=== PATIENT | male | born 1955 | race Caucasian/White ===

== ENCOUNTER 2018-08-27 11:07 | Observation (INO) | payer BC ==
[2018-08-27] MEDS ORDERED: ONDANSETRON HCL IV 4 MG/2 ML VIAL IVP ONE (11:34)
[2018-08-27] MEDS ORDERED: 0.9 % SODIUM CHLORIDE 1,000 ML BAG IV ONE (11:34)
--- NOTE | 2018-08-27 11:43 | Emergency Department Record ---
History of Present Illness - General Chief Complaint: Detox Evaluation Stated Complaint: DETOX/CHEST PAINS Time Seen by Provider: 08/27/18 11:16 Source: Patient, Family Mode of Arrival: Wheelchair Limitations: No limitations - History of Present Illness Initial comments: 62 yo male presents with nausea, vomiting, diarrhea, chills, shakes, nausea, vomiting since intentionally stopping his Morphine. He has been on Morphine for 15+ years. He has attempted this a few times in past abruptly stopping. His last for sure dose of Morphine was on Wednesday. He has fibromyalgia and psoriatic arthritis. Last night he had some brief chest pain as well. He denies any history of CAD. He does not consume alcohol. -: Days(s) (5) Location: Other (Pain all over) Quality: Aching Consistency: Constant Improves with: None Worsens with: Other (Abruptly stopping his medication) Associated Symptoms: Loss of appetite, Malaise, Nausea/vomiting, Weakness Treatments Prior to Arrival: None - Lc Coma Scale Eye Response: (4) Open spontaneously Motor Response: (6) Obeys commands Verbal Response: (5) Oriented [place] Total: 15 - Related Data Home Medications Medication Instructions Recorded Confirmed Last Taken Bupropion HCl [Bupropion HCl Sr] 08/27/18 Unknown Ergocalciferol (Vitamin D2) 08/27/18 Unknown [Vitamin D2] Nefazodone HCl 400 mg PO 08/27/18 Unknown Allergies Allergy/AdvReac Type Severity Reaction Status Date / Time erythromycin base Allergy VOMITING Verified 08/27/18 11:31 [Erythromycin Base] Travel Screening - Travel/Exposure Within Last 30 Days Have you traveled within the last 30 days?: No - Travel/Exposure Within Last Year Have you traveled outside the [place] in the last year?: No - Additonal Travel Details Have you been exposed to anyone with a communicable illness?: No - Travel Symptoms Symptom Screening: None Review of Systems Constitutional: Reports: Malaise, Weakness. Denies: Chills, Fever Eyes: Denies: Eye discharge, Eye pain, Photophobia, Vision change ENT: Denies: Congestion, Throat pain Respiratory: Denies: Cough, Dyspnea, Hemoptysis, Stridor, Wheezes Cardiovascular: Reports: Chest pain. Denies: Dyspnea on exertion, Edema, Palpitations, Syncope Endocrine: Reports: Fatigue Gastrointestinal: Reports: Abdominal pain, Diarrhea, Nausea, Vomiting Genitourinary: Denies: Dysuria, Frequency, Hematuria Musculoskeletal: Reports: Arthralgia, Back pain, Myalgia, Neck pain Skin: Denies: Bruising, Change in color, Rash Neurological: Denies: Headache Psychiatric: Denies: Anxiety Hematological/Lymphatic: Denies: Easy bleeding, Easy bruising Past Medical History - SOCIAL HISTORY Smoking Status: Current every day smoker Alcohol Use: None Drug Use: None - RESPIRATORY Hx Respiratory Disorders: No Hx Sleep Apnea: Yes (only if sleeps on back) Comment:: post nasal drip r/t allergies - CARDIOVASCULAR Hx Cardio Disorders: No Hx Irregular Heartbeat: Yes (10 yrs ago ht monitor was neg) - NEURO Hx Neuro Disorders: No - GI Hx GI Disorders: Yes Hx Reflux: Yes Hx Liver Disease: Yes (hepatitis 25 years ago) Hx Nausea/Vomiting: Yes Comment:: dysphagia IBS - Hx Genitourinary Disorders: Yes Hx Prostate Problems: Yes (enlarged) - ENDOCRINE Hx Endocrine Disorders: No - MUSCULOSKELETAL Hx Musculoskeletal Disorders: Yes Hx Arthritis: Yes Hx Fibromyalgia: Yes - PSYCH Hx Psych Problems: No Hx Anxiety: Yes Hx Depression: Yes (hx clinical depression late 1989) - HEMATOLOGY/ONCOLOGY Hx Hematology/Oncology Disorders: No Family Medical History Any Significant Family History?: No Physical Exam - General General Appearance: Alert, Oriented x3, Cooperative, No acute distress Limitations: No limitations - Head Head exam: Atraumatic, Normal inspection - Eye Eye exam: Normal appearance. negative: Conjunctival injection, Scleral icterus - ENT ENT exam: Normal exam, Mucous membranes moist, Normal orophraynx Ear exam: Normal external inspection Nasal Exam: Normal inspection Mouth exam: Normal external inspection Teeth exam: Normal inspection - Neck Neck exam: Normal inspection - Respiratory Respiratory exam: Normal lung sounds bilaterally. negative: Respiratory distress - Cardiovascular Cardiovascular Exam: Regular rate, Normal rhythm, Normal heart sounds - GI/Abdominal GI/Abdominal exam: Soft. negative: Tenderness - Rectal Rectal exam: Deferred - exam: Deferred - Extremities Extremities exam: Normal inspection, Full ROM, Normal capillary refill. negative: Pedal edema, Tenderness - Back Back exam: Denies: CVA tenderness (R), CVA tenderness (L) - Neurological Neurological exam: Alert, Oriented X3 - Psychiatric Psychiatric exam: Normal affect, Normal mood - Skin Skin exam: Dry, Intact, Normal color, Warm Course Vital Signs 08/27/18 11:21 Temperature 98.8 F Pulse Rate 75 Respiratory 16 Rate Blood Pressure 112/61 Pulse Ox 99 - Reevaluation(s) Reevaluation #1: EKG #1: 11:13 Rate: 61 Rhythm: sinus [place]: L Intervals: normal ST segments: no acute ST changes Prior: none 08/27/18 11:49 08/27/18 11:51 Vitals reviewed No acute changes 08/27/18 12:16 The CBC was reviewed. No acute changes. 08/27/18 12:27 The Mg is 1.7 The K is 2.8 The Sodium is 128 08/27/18 17:20 Given the NV and electrolyte abnormalities I recommend admission for supportive care. He is firm in his decision to not take narcotics. I EDISON Moya [employer] for admission Medical Decision Making - Lab Data Result diagrams: 08/27/18 11:25 08/27/18 11:25 Disposition Disposition: Admit Clinical Impression: Narcotic withdrawal Disposition: Still a Patient at [facility] Decision to Admit: Admit from ER Decision to Admit Date: 08/27/18 Decision to Admit Time: 14:20 Condition: (1) Good Time of Disposition: 14:20 Quality - Quality Measures Quality Measures: N/A - Blood Pressure Screening Does Patient Have Any of the Following: Active Dx of HTN Blood Pressure Classification: Normal BP Reading Systolic Measurement: 112 Diastolic Measurement: 61 Screening for High Blood Pressure: Patient Exclusion, Hx of HTN [[id number]]
[2018-08-27] MEDS ORDERED: LORAZEPAM 2 MG/ML VIAL IV ONE (11:44)
[2018-08-27 11:56] LABS: BASO % 0.2 % (0-6); EOS % 0.5 % (0-6); GRAN % 73.3 % (47-80); HEMATOCRIT 44.2 % (42.0-52.0); HEMOGLOBIN 15.5 gm/dl (14.0-18.0); LYMPH % 19.2 % (16-45); MEAN CELL VOLUME 83.9 fl (81-97); MEAN CORPUSCULAR HEMOGLOBIN 29.4 pg (27-33); MEAN CORPUSCULAR HGB CONC 35.1 g/dl (32-36); MEAN PLATELET VOLUME 9.4 fl (7.4-10.4); MONO % 6.8 % (0-9); PLATELET COUNT 257 K/uL (130-400); RED BLOOD COUNT 5.27 M/uL (4.40-5.70); RED CELL DISTRIBUTION WIDTH 13.5 % (11.5-14.5); WHITE BLOOD COUNT W/O DIFF 8.2 K/uL (4.2-12.2)
[2018-08-27 12:05] LABS: BLOOD UREA NITROGEN 3 mg/dL (8-23); CREATININE 0.8 mg/dL (0.7-1.2); EST GLOMERULAR FILTRATION RATE > 60 mL/min
[2018-08-27 12:06] LABS: LIPASE 57 U/L (13-60); TOTAL PROTEIN 6.7 g/dL (6.6-8.7)
[2018-08-27 12:08] LABS: GLUCOSE,RANDOM 112 mg/dL (74-109)
[2018-08-27 12:10] LABS: ALT/SGPT 26 U/L (<41)
[2018-08-27 12:11] LABS: ALB/GLOB RATIO 1.5 (1.1-1.8); ALKALINE PHOSPHATASE 116 U/L (40-129); AST/SGOT 15 U/L (10.0-50.0)
[2018-08-27] MEDS ORDERED: MAGNESIUM SULFATE 16 MEQ in 0.9 % SODIUM CHLORIDE 100ML 100 ML IV ONE (12:16)
[2018-08-27] MEDS ORDERED: SOD CHLOR 0.9% WITH KCL 40MEQ 40 MEQ/1,000 ML IV.SOLN IV ONE (12:27)
[2018-08-27] MEDS ORDERED: POTASSIUM CHLORIDE/D5-0.9%NACL 20 MEQ/1,000 ML BAG IV SCH (14:26)
[2018-08-27] MEDS: ONDANSETRON HCL IV 4 MG/2 ML VIAL IVP PRN ×2 (16:55→21:19)
[2018-08-27] MEDS: LORAZEPAM 2 MG/ML VIAL IV PRN ×2 (16:56→21:22)
[2018-08-27] MEDS: CLONIDINE HCL 0.1 MG TABLET PO SCH ×3 (16:56→22:15)
[2018-08-27 18:39] LABS: HEMATOCRIT 39.2 % (42.0-52.0); HEMOGLOBIN 13.4 gm/dl (14.0-18.0)
[2018-08-27] MEDS: POTASSIUM CHLORIDE/D5-0.9%NACL 20 MEQ/1,000 ML BAG IV SCH (21:02)
[2018-08-28] MEDS: ONDANSETRON HCL IV 4 MG/2 ML VIAL IVP PRN ×5 (02:49→18:16)
[2018-08-28] MEDS: POTASSIUM CHLORIDE/D5-0.9%NACL 20 MEQ/1,000 ML BAG IV SCH (05:12)
[2018-08-28 05:48] LABS: BASO % 0.3 % (0-6); EOS % 1.6 % (0-6); GRAN % 54.1 % (47-80); HEMATOCRIT 37.2 % (42.0-52.0); HEMOGLOBIN 12.4 gm/dl (14.0-18.0); LYMPH % 35.6 % (16-45); MEAN CELL VOLUME 85.7 fl (81-97); MEAN CORPUSCULAR HGB CONC 33.3 g/dl (32-36); MEAN PLATELET VOLUME 9.2 fl (7.4-10.4); MONO % 8.4 % (0-9); PLATELET COUNT 222 K/uL (130-400); RED BLOOD COUNT 4.34 M/uL (4.40-5.70); RED CELL DISTRIBUTION WIDTH 13.3 % (11.5-14.5); WHITE BLOOD COUNT W/O DIFF 6.7 K/uL (4.2-12.2)
[2018-08-28 05:51] LABS: MEAN CORPUSCULAR HEMOGLOBIN 28.5 pg (27-33)
[2018-08-28 06:26] LABS: ALB/GLOB RATIO 1.7 (1.1-1.8); ALBUMIN 3.2 g/dL (4.0-5.0); ALKALINE PHOSPHATASE 85 U/L (40-129); ALT/SGPT 18 U/L (<41); AST/SGOT 12 U/L (10.0-50.0); BLOOD UREA NITROGEN 2 mg/dL (8-23); CREATININE 0.6 mg/dL (0.7-1.2); EST GLOMERULAR FILTRATION RATE > 60 mL/min; GLUCOSE,RANDOM 131 mg/dL (74-109); TOTAL PROTEIN 5.1 g/dL (6.6-8.7)
[2018-08-28] MEDS ORDERED: MELOXICAM 7.5 MG TABLET PO SCH (10:00)
[2018-08-28] MEDS ORDERED: FOLIC ACID 1 MG TABLET PO SCH (10:00)
[2018-08-28] MEDS: CLONIDINE HCL 0.1 MG TABLET PO SCH (10:03)
[2018-08-28] MEDS ORDERED: 0.9 % SODIUM CHLORIDE 1000ML 1,000 ML IV PRN (12:53)
[2018-08-28] MEDS ORDERED: POTASSIUM CHLORIDE 20 MEQ TABLET PO SCH (13:00)
--- NOTE | 2018-08-28 15:18 | History & Physical ---
History of Present Illness - Date of Service Date of Service for History & Physical: 08/28/18 - History of Present Illness Admitting Diagnosis: opiod withdrawal, hypokalemia, hypomag, hyponatremia, vomiting History of Present Illness: Alessio Coto is a 62 y.o. M who presented to the [facility] ED with c/o nausea, vomiting, diarrhea, chills and shakes since Wednesday08/23/18 when he intentionally stopped taking his Morphine IR and Morphine ER. Was put on Morphine for Fibromyalgia by the [facility] and has been on it for more than 15 years. Has abruptly stopped taking these medications in the past and reports that the withdrawal period would only last 4-5 days.Does note that he has been feeling very nauseated x 3 months. Did report it to his PCP who sent him to a GI specialist who stopped his Meloxicam. Reports that his nausea was slightly improved after he stopped the Meloxicam. Denies history of heart problems. Has had gallbladder removed but since then, has had issues with stones in the Common Bile Duct. ED Course Vitals: T 98.8, HR 75, RR 16, BP 112/61, SpO2 99% on RA EKG: NSR, HR 61, no acute ST changes Labs: CBC unremarkable, Mg 1.7, K 2.8, Na 128 08/28/18 1500 Vitals: T 99.4, HR 56, BP 84/52, SpO2 96% on RA Lying in bed with spouse at bedside. Easy to arouse. Reports epigastric abdominal pain and nausea. Pt and nursing staff report that he has had constant loose stool and that on occasion, it looks like coffee grounds or there is bright red blood in the toilet. Reports that he has had frequent episodes of pancreatitis. CT of Abd/pelvis ordered and indicated heterogenity of pancreatic head and colitis from midtransverse through rectum. Hgb dropped from 15.5 to 12.4 in less than 24 hours and has been hypotensive. Occult stool negative x 1. Pt did not want to leave [facility] however after discussing CT and the recommendation for MRCP and need for further workup, pt and agreeable. Travel Screening - Travel/Exposure Within Last 30 Days Have you traveled within the last 30 days?: No - Travel/Exposure Within Last Year Have you traveled outside the [place] in the last year?: No - Additonal Travel Details Have you been exposed to anyone with a communicable illness?: No - Travel Symptoms Symptom Screening: None Review of Systems Reviewed: No additional complaints except as noted below Constitutional: Reports: Malaise, Weakness, Weight change (10 lb). Denies: Chills, Fever Eyes: Denies: Eye discharge, Eye pain, Photophobia, Vision change ENT: Denies: Congestion, Throat pain Respiratory: Denies: Cough, Dyspnea, Hemoptysis, Stridor, Wheezes Cardiovascular: Reports: Chest pain. Denies: Dyspnea on exertion, Edema, Palpitations, Syncope Endocrine: Reports: Fatigue Gastrointestinal: Reports: Abdominal pain, Diarrhea, Melena, Nausea, Vomiting Genitourinary: Denies: Dysuria, Frequency, Hematuria Musculoskeletal: Reports: Arthralgia, Back pain, Myalgia, Neck pain Skin: Denies: Bruising, Change in color, Rash Neurological: Denies: Headache Psychiatric: Denies: Anxiety Hematological/Lymphatic: Denies: Easy bleeding, Easy bruising Past Medical History - SOCIAL HISTORY Smoking Status: Current every day smoker - RESPIRATORY Hx Respiratory Disorders: No Hx Sleep Apnea: Yes (only if sleeps on back) Comment:: post nasal drip r/t allergies - CARDIOVASCULAR Hx Cardio Disorders: No Hx Irregular Heartbeat: Yes (10 yrs ago ht monitor was neg) - NEURO Hx Neuro Disorders: No - GI Hx GI Disorders: Yes Hx Reflux: Yes Hx Liver Disease: Yes (hepatitis 25 years ago) Hx Nausea/Vomiting: Yes Comment:: dysphagia IBS - Hx Genitourinary Disorders: Yes Hx Prostate Problems: Yes (enlarged) - ENDOCRINE Hx Endocrine Disorders: No - MUSCULOSKELETAL Hx Musculoskeletal Disorders: Yes Hx Arthritis: Yes Hx Fibromyalgia: Yes - PSYCH Hx Psych Problems: No Hx Anxiety: Yes Hx Depression: Yes (hx clinical depression late 1989) - HEMATOLOGY/ONCOLOGY Hx Hematology/Oncology Disorders: No Family Medical History Any Significant Family History?: No H&P Meds/Allergies - Allergies Allergies: Allergies Allergy/AdvReac Type Severity Reaction Status Date / Time erythromycin base Allergy VOMITING Verified 08/27/18 11:31 [Erythromycin Base] - Home Medications Home Medications Medication Instructions Recorded Confirmed Last Taken Bupropion HCl [Bupropion HCl Sr] 08/27/18 Unknown Ergocalciferol (Vitamin D2) 08/27/18 Unknown [Vitamin D2] Nefazodone HCl 400 mg PO 08/27/18 Unknown - Active Medications Active Medications: Current Medications Folic Acid () 1 mg PO BID [facility] Last Admin: 08/28/18 10:03 Dose: 1 mg Sodium Chloride () 1,000 mls @ 150 mls/hr IV .Q6H40M PRN PRN Reason: LARGE VOLUME IV Last Admin: 08/28/18 13:15 Dose: 150 mls/hr Lorazepam (Ativan) 1 mg IV Q4H PRN PRN Reason: ANXIETY Last Admin: 08/27/18 21:22 Dose: 1 mg Ondansetron HCl (Zofran) 4 mg IVP Q4H PRN PRN Reason: NAUSEA Last Admin: 08/28/18 13:14 Dose: 4 mg Potassium Chloride (Klor-Con) 20 meq PO DAILY [facility] Last Admin: 08/28/18 13:15 Dose: 20 meq Physical Exam - Vital Signs Vital Signs: Vital Signs - Last 24 Hrs Temp Pulse Resp BP BP Pulse Ox 08/28/18 12:30 99.4 F 56 L 16 84/52 96 08/28/18 08:00 98.2 F 63 18 107/65 98 08/27/18 18:02 97.7 F 121/63 - General General Appearance: Alert, Oriented x3, Cooperative, No acute distress, Other ( malodorous) Limitations: No limitations - Head Head exam: Atraumatic, Normal inspection - Eye Eye exam: Normal appearance. negative: Conjunctival injection, Scleral icterus - ENT ENT exam: Normal exam, Mucous membranes dry, Normal orophraynx Ear exam: Normal external inspection Nasal Exam: Normal inspection Mouth exam: Normal external inspection Teeth exam: Normal inspection - Neck Neck exam: Normal inspection - Respiratory Respiratory exam: Normal lung sounds bilaterally. negative: Respiratory distress - Cardiovascular Cardiovascular Exam: Regular rate, Normal rhythm, Normal heart sounds - GI/Abdominal GI/Abdominal exam: Soft, Guarding, Hyperactive bowel sounds. negative: Tenderness - Rectal Rectal exam: Heme (-) stool (x1) - exam: Deferred - Extremities Extremities exam: Normal inspection, Full ROM, Normal capillary refill. negative: Pedal edema, Tenderness - Back Back exam: Denies: CVA tenderness (R), CVA tenderness (L) - Neurological Neurological exam: Alert, Oriented X3 - Psychiatric Psychiatric exam: Normal affect, Normal mood - Skin Skin exam: Dry, Intact, Pallor, Warm Results - Labs Result Diagrams: 08/28/18 05:20 08/28/18 05:20 Labs Last 24 Hours: Laboratory Results - last 24 hr 08/27/18 08/27/18 08/28/18 18:20 18:20 02:00 WBC RBC Hgb 13.4 L Hct 39.2 L MCV MCH MCHC RDW Plt Count MPV Gran % Neutrophils % Band Neutrophils % Lymphocytes % Monocytes % Eosinophils % Basophils % Lymphocytes Monocytes Basophils Metamyelocytes Myelocytes Promyelocytes Nucleated RBCs Differential Comment Hypersegmented Polys Plasma Cells Other Cell Type Toxic Granulation Dohle Bodies Otilia Rods Platelet Estimate RBC Morphology Polychromasia Hypochromasia Poikilocytosis Basophilic Stippling Anisocytosis Microcytosis Macrocytosis Spherocytes Sickle Cells Target Cells Tear Drop Cells Ovalocytes Stomatocytes Helmet Cells Carlos-Foreman Bodies [place] Rings Ledbetter Cells Acanthocytes (Spur) Rouleaux Schistocytes Morphology Comment Eosinophil Count Sodium Potassium Chloride Carbon Dioxide Anion Gap BUN Creatinine Estimated GFR Random Glucose Calcium Magnesium Total Bilirubin AST ALT Alkaline Phosphatase Troponin T < 0.010 Cancelled Total Protein Albumin Globulin Albumin/Globulin Ratio Stool Occult Blood 08/28/18 08/28/18 08/28/18 05:20 05:20 06:00 WBC 6.7 RBC 4.34 L Hgb 12.4 L Hct 37.2 L MCV 85.7 MCH 28.5 MCHC 33.3 RDW 13.3 Plt Count 222 MPV 9.2 Gran % 54.1 Neutrophils % Cancelled Band Neutrophils % Cancelled Lymphocytes % 35.6 Monocytes % 8.4 Eosinophils % 1.6 Basophils % 0.3 Lymphocytes Cancelled Monocytes Cancelled Basophils Cancelled Metamyelocytes Cancelled Myelocytes Cancelled Promyelocytes Cancelled Nucleated RBCs Cancelled Differential Comment Cancelled Hypersegmented Polys Cancelled Plasma Cells Cancelled Other Cell Type Cancelled Toxic Granulation Cancelled Dohle Bodies Cancelled Otilia Rods Cancelled Platelet Estimate Cancelled RBC Morphology Cancelled Polychromasia Cancelled Hypochromasia Cancelled Poikilocytosis Cancelled Basophilic Stippling Cancelled Anisocytosis Cancelled Microcytosis Cancelled Macrocytosis Cancelled Spherocytes Cancelled Sickle Cells Cancelled Target Cells Cancelled Tear Drop Cells Cancelled Ovalocytes Cancelled Stomatocytes Cancelled Helmet Cells Cancelled Carlos-Foreman Bodies Cancelled [place] Rings Cancelled Ledbetter Cells Cancelled Acanthocytes (Spur) Cancelled Rouleaux Cancelled Schistocytes Cancelled Morphology Comment Cancelled Eosinophil Count Cancelled Sodium 136 Cancelled Potassium 3.6 Cancelled Chloride 107 Cancelled Carbon Dioxide 22.0 Cancelled Anion Gap 7.0 Cancelled BUN 2 L Cancelled Creatinine 0.6 L Cancelled Estimated GFR > 60 Cancelled Random Glucose 131 H Cancelled Calcium 7.5 L Cancelled Magnesium 2.0 Cancelled Total Bilirubin 0.30 AST 12 ALT 18 Alkaline Phosphatase 85 Troponin T < 0.010 Total Protein 5.1 L Albumin 3.2 L Globulin 1.9 Albumin/Globulin Ratio 1.7 Stool Occult Blood 08/28/18 13:29 WBC RBC Hgb Hct MCV MCH MCHC RDW Plt Count MPV Gran % Neutrophils % Band Neutrophils % Lymphocytes % Monocytes % Eosinophils % Basophils % Lymphocytes Monocytes Basophils Metamyelocytes Myelocytes Promyelocytes Nucleated RBCs Differential Comment Hypersegmented Polys Plasma Cells Other Cell Type Toxic Granulation Dohle Bodies Otilia Rods Platelet Estimate RBC Morphology Polychromasia Hypochromasia Poikilocytosis Basophilic Stippling Anisocytosis Microcytosis Macrocytosis Spherocytes Sickle Cells Target Cells Tear Drop Cells Ovalocytes Stomatocytes Helmet Cells Carlos-Foreman Bodies [place] Rings Ledbetter Cells Acanthocytes (Spur) Rouleaux Schistocytes Morphology Comment Eosinophil Count Sodium Potassium Chloride Carbon Dioxide Anion Gap BUN Creatinine Estimated GFR Random Glucose Calcium Magnesium Total Bilirubin AST ALT Alkaline Phosphatase Troponin T Total Protein Albumin Globulin Albumin/Globulin Ratio Stool Occult Blood Negative VTE H&P Assessment - Risk for VTE Risk for VTE: Yes Risk Level: Moderate Risk Assessment Date: 08/28/18 Risk Assessment Time: 15:00 VTE Orders Placed or Will Be Placed: No VTE Reason for No Prophylaxis: Complication of Medical Care (transfer to higher level of care) Plan - Detailed Diagnosis and Plan (1) Narcotic withdrawal Current Visit: Yes Status: Acute Base Code: F11.23 - OPIOID DEPENDENCE WITH WITHDRAWAL Comment: 08/28/18 -Morphine ER and Morphine IR x 15 years -Stopped taking as of 08/23/18 -Trialed Clonidine 0.1mg, however stopped d/t hypotension (84/52) -IV Zofran and Ativan given as needed (2) Abdominal pain Current Visit: Yes Status: Acute Base Code: R10.9 - UNSPECIFIED ABDOMINAL PAIN Comment: 08/28/18 -Epigastric abdominal pain, hx of pancreatitis and common bile duct issues -Blood loss per rectum noted by staff and pt -CT abd/pelvis: heterogenity of pancreatic head, colitis midtransverse through rectum with f/u MRI or MRCP recommended -Hgb dropped from 15.5 to 12.4 in less than 24 hours -Discussed need for higher level of care with pt and spouse who are in agreement -[facility] physician Dr. Nunez accepted pt transfer (3) Full code status Current Visit: Yes Status: Acute Base Code: Z78.9 - OTHER SPECIFIED HEALTH STATUS Comment: 08/28/18 -Full code this admission (4) DVT prophylaxis Current Visit: Yes Status: Acute Base Code: [id number] - Comment: 08/28/18 -Moderate risk d/t age -Transferred to [facility]
[2018-08-28] MEDS ORDERED: PANTOPRAZOLE SODIUM IV 40 MG VIAL IVP SCH (16:30)
--- NOTE | 2018-08-28 19:55 | Discharge Summary ---
Providers Discharge Summary Date: 08/28/18 Date of admission: 08/27/18 13:55 Attending physician: JAYA LERNER Primary care physician: Min Becerra Physical Exam - Vital Signs Vital Signs: Vital Signs - Last 24 Hrs Temp Pulse Resp BP Pulse Ox 08/28/18 19:10 98.3 F 50 L 16 104/52 98 08/28/18 12:30 99.4 F 56 L 16 84/52 96 08/28/18 08:00 98.2 F 63 18 107/65 98 - General General Appearance: Alert, Oriented x3, Cooperative, No acute distress, Other ( malodorous) Limitations: No limitations - Head Head exam: Atraumatic, Normal inspection - Eye Eye exam: Normal appearance. negative: Conjunctival injection, Scleral icterus - ENT ENT exam: Normal exam, Mucous membranes dry, Normal orophraynx Ear exam: Normal external inspection Nasal Exam: Normal inspection Mouth exam: Normal external inspection Teeth exam: Normal inspection - Neck Neck exam: Normal inspection - Respiratory Respiratory exam: Normal lung sounds bilaterally. negative: Respiratory distress - Cardiovascular Cardiovascular Exam: Regular rate, Normal rhythm, Normal heart sounds - GI/Abdominal GI/Abdominal exam: Soft, Guarding, Hyperactive bowel sounds. negative: Tenderness - Rectal Rectal exam: Heme (-) stool (x1) - exam: Deferred - Extremities Extremities exam: Normal inspection, Full ROM, Normal capillary refill. 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 Comment: 08/28/18 -Morphine ER and Morphine IR x 15 years -Stopped taking as of 08/23/18 -Trialed Clonidine 0.1mg, however stopped d/t hypotension (84/52) -IV Zofran and Ativan given as needed (2) Abdominal pain Current Visit: Yes Status: Acute Base Code: R10.9 - UNSPECIFIED ABDOMINAL PAIN Comment: 08/28/18 -Epigastric abdominal pain, hx of pancreatitis and common bile duct issues -Blood loss per rectum noted by staff and pt -CT abd/pelvis: heterogenity of pancreatic head, colitis midtransverse through rectum with f/u MRI or MRCP recommended -Hgb dropped from 15.5 to 12.4 in less than 24 hours -Discussed need for higher level of care with pt and spouse who are in agreement -[facility] physician Dr. Nunez accepted pt transfer (3) Full code status Current Visit: Yes Status: Acute Base Code: Z78.9 - OTHER SPECIFIED HEALTH STATUS Comment: 08/28/18 -Full code this admission (4) DVT prophylaxis Current Visit: Yes Status: Acute Base Code: [id number] - Comment: 08/28/18 -Moderate risk d/t age -Transferred to [facility] - Hospitalization Course Disposition: Acute Care Hospital Transfer Hospital Course: Alessio Coto is a 62 y.o. M who presented to the [facility] ED with c/o nausea, vomiting, diarrhea, chills and shakes since Wednesday08/23/18 when he intentionally stopped taking his Morphine IR and Morphine ER. Was put on Morphine for Fibromyalgia by the [facility] and has been on it for more than 15 years. Has abruptly stopped taking these medications in the past and reports that the withdrawal period would only last 4-5 days.Does note that he has been feeling very nauseated x 3 months. Did report it to his PCP who sent him to a GI specialist who stopped his Meloxicam. Reports that his nausea was slightly improved after he stopped the Meloxicam. Denies history of heart problems. Has had gallbladder removed but since then, has had issues with stones in the Common Bile Duct. ED Course Vitals: T 98.8, HR 75, RR 16, BP 112/61, SpO2 99% on RA EKG: NSR, HR 61, no acute ST changes Labs: CBC unremarkable, Mg 1.7, K 2.8, Na 128 08/28/18 1500 Vitals: T 99.4, HR 56, BP 84/52, SpO2 96% on RA Lying in bed with spouse at bedside. Easy to arouse. Reports epigastric abdominal pain and nausea. Pt and nursing staff report that he has had constant loose stool and that on occasion, it looks like coffee grounds or there is bright red blood in the toilet. Reports that he has had frequent episodes of pancreatitis. CT of Abd/pelvis ordered and indicated heterogenity of pancreatic head and colitis from midtransverse through rectum. Hgb dropped from 15.5 to 12.4 in less than 24 hours and has been hypotensive. Occult stool negative x 1. Pt did not want to leave [facility] however after discussing CT and the recommendation for MRCP and need for further workup, pt and agreeable. 08/28/[address] Nunez, through [facility], who accepted the patient. Coordination of transfer being done by nursing staff. Pt and family aware. Procedures: Imaging and X-Rays 08/28/18 13:45 ABDOMEN/PELVIS W CONTRAST [CT] Stat Cardiology Procedures 08/27/18 11:18 EKG NOW 08/27/18 14:26 Antenna Installer .Continuous Abnormal Labs: Abnormal Lab Results 08/27/18 08/27/18 08/28/18 Range/Units 11:25 18:20 05:20 RBC 4.34 L (4.40-5.70) M/uL Hgb 13.4 L 12.4 L (14.0-18.0) gm/dl Hct 39.2 L 37.2 L (42.0-52.0) % Sodium 129 L (136-145) mmol/L Potassium 2.8 L* (3.4-4.5) mmol/L Chloride 94 L (98-107) mmol/L BUN 3 L (8-23) mg/dL Creatinine (0.7-1.2) mg/dL Random Glucose 112 H (74-109) mg/dL Calcium (8.8-10.2) mg/dL Total Protein (6.6-8.7) g/dL Albumin (4.0-5.0) g/dL 08/28/18 Range/Units 05:20 RBC (4.40-5.70) M/uL Hgb (14.0-18.0) gm/dl Hct (42.0-52.0) % Sodium (136-145) mmol/L Potassium (3.4-4.5) mmol/L Chloride (98-107) mmol/L BUN 2 L (8-23) mg/dL Creatinine 0.6 L (0.7-1.2) mg/dL Random Glucose 131 H (74-109) mg/dL Calcium 7.5 L (8.8-10.2) mg/dL Total Protein 5.1 L (6.6-8.7) g/dL Albumin 3.2 L (4.0-5.0) g/dL Condition at Discharge: (1) Good Discharge Medications - Discharge Medications Home Medications: Ambulatory Orders Folic Acid 1 mg PO BID 10/06/13 [Last Taken 08/06/14] Morphine Sulfate 15 mg PO TID PRN 10/06/13 [Last Taken 08/23/18] Morphine Sulfate ER 30 mg PO BID 10/06/13 [Last Taken 08/23/18] Xanax 0.5 mg PO DAILY PRN 10/06/13 [Last Taken 05/10/15] Meloxicam 15 mg PO DAILY 05/10/15 [Last Taken 05/10/15] Tramadol HCl [Ultram] 50 mg PO Q8H 05/10/15 [Last Taken 05/10/15] Bupropion HCl [Bupropion HCl Sr] 08/27/18 [Last Taken Unknown] Ergocalciferol (Vitamin D2) [Vitamin D2] 08/27/18 [Last Taken Unknown] Nefazodone HCl 400 mg PO 08/27/18 [Last Taken Unknown] Discharge Plan - Discharge Instructions Quality Measures - Quality Measures Quality Measures: Documentation of Current Medications in Medical Record, Screening for High Blood Pressure and F/U Documented - Current Medications Quality Measure: Measure #130: Documentation of Current Medications Documentation of Current Medications: <Current Medications Documented/Reviewed> [G8427] - Blood Pressure Screening Quality Measure: Screening for High Blood Pressure and Follow-Up Documented Does Patient Have Any of the Following: No Blood Pressure Classification: Pre-Hypertensive BP Reading Systolic Measurement: 121 Diastolic Measurement: 63 Screening for High Blood Pressure: < Pre-Hypertensive BP, F/U Documented > [ G8950] Pre-Hypertensive Follow-up Interventions: Referral to alternative/primary care provider. - Elder Abuse Suspicion Index EASI Reference Information: Jordi PERRY, Rosalva C, David Villa, Mayito Hernandez.Development and validation of a tool to assist physicians identification of elder abuse: The Elder Abuse Suspicion Index (EASI ). Journal of Elder Abuse and Neglect, 2008; 20 (3): 276-300.
[2018-08-28] MEDS ORDERED: NEFAZODONE MC SCH (22:00)
[2018-08-28] MEDS ORDERED: CLONIDINE HCL 0.1 MG TABLET PO SCH (22:00)
[2018-08-28] MEDS ORDERED: CALCIUM CARBONATE 500 MG TAB.CHEW PO SCH (22:00)
[2018-08-28] MEDS ORDERED: ALPRAZOLAM 1 MG TAB PO SCH (22:00)
--- NOTE | 2018-08-29 08:11 | CT SCAN REPORT ---
EXAM: CT OF THE ABDOMEN AND PELVIS WITH CONTRAST HISTORY: GENERALIZED ABDOMINAL PAIN, NAUSEA, VOMITING AND DIARRHEA FOR FIVE DAYS. PRIOR CHOLECYSTECTOMY. TECHNIQUE: CT of the abdomen and pelvis was obtained with 100 ml Omnipaque 300 intravenous contrast and oral contrast. Comparison: None. FINDINGS: Minimal lingular atelectasis at the left lung base. Mild intrahepatic biliary dilatation. The gallbladder is surgically absent. The majority of the pancreas appears unremarkable. Poorly defined heterogeneity near the pancreatic head near the level of the second segment of the duodenum. The adrenal glands are unremarkable. The spleen is unremarkable. Symmetric renal perfusion. No hydronephrosis. The aortoiliac arterial accesses is calcified without evidence of aneurysm or dissection. The infrarenal abdominal aorta is minimally ectatic measuring up to 2.5 cm in maximal diameter. Circumferential thickening of the colonic wall extending from the mid transverse colon through the rectum with associated pericolonic fat stranding. Normal appendix. The stomach and small bowel are nondilated. No free air or significant free fluid. The prostate gland appears enlarged. Unremarkable appearance of the urinary bladder. No acute osseous findings. IMPRESSION: 1. FINDINGS COMPATIBLE WITH NONSPECIFIC COLITIS EXTENDING FROM THE MID TRANSVERSE COLON THROUGH THE RECTUM. 2. MILD POORLY DEFINED HETEROGENEITY NEAR THE JUNCTION OF THE PANCREATIC HEAD AND DUODENUM; THIS COULD REPRESENT A SMALL DUODENAL DIVERTICULUM, ALTHOUGH FOLLOW-UP WITH PANCREAS PROTOCOL MRI WOULD HELP TO EXCLUDE A PANCREAS PARENCHYMAL ABNORMALITY IN THIS REGION. 3. MILD PROMINENCE OF THE EXTRA AND INTRAHEPATIC BILE DUCTS; THIS COULD REPRESENT FUNCTIONAL CHANGE FOLLOWING CHOLECYSTECTOMY, ALTHOUGH CORRELATION FOR BILIARY OBSTRUCTION IS RECOMMENDED. MRCP COULD HELP TO FURTHER EVALUATE. 4. MINIMAL INFRARENAL ABDOMINAL AORTIC ECTASIA. JOB NUMBER: [id number] [facility]
[2018-08-29] MEDS ORDERED: WELLBUTRIN 100 MG MC SCH (10:00)
== END 2018-08-28 19:10 | disposition short-term general hospital (02) ==
LOC: ER 11:07 → MEDSURG 13:55
PROVIDERS: ADMIT Internal Medicine; ATTEND Internal Medicine
DX: F11.23 Opioid dependence with withdrawal (principal); T40.2X5A Adverse effect of other opioids, initial encounter; E87.6 Hypokalemia; E83.42 Hypomagnesemia; E87.1 Hypo-osmolality and hyponatremia; L40.50 Arthropathic psoriasis, unspecified; M79.7 Fibromyalgia; R19.7 Diarrhea, unspecified; R07.9 Chest pain, unspecified; K85.90 Acute pancreatitis without necrosis or infection, unspecified; R13.10 Dysphagia, unspecified; K21.9 Gastro-esophageal reflux disease without esophagitis; K58.9 Irritable bowel syndrome, unspecified; F17.290 Nicotine dependence, other tobacco product, uncomplicated
CPT/HCPCS: 74177; 80053; 82272; 83690; 83735; 84484; 85014; 85018; 85025; 87427; 93005; 93010; 96365; 96374; 96375; 99220; 99285; J2405; J3480; J7030

== ENCOUNTER 2018-11-14 19:41 | Emergency (ER) | payer BC ==
[2018-11-14] MEDS ORDERED: ONDANSETRON HCL IV 4 MG/2 ML VIAL IVP ONE (19:52)
[2018-11-14] MEDS ORDERED: HYDROMORPHONE HCL 2 MG/ML VIAL IVP ONE (19:53)
--- NOTE | 2018-11-14 19:59 | Emergency Department Record ---
History of Present Illness - General Chief Complaint: Abdominal Pain Stated Complaint: ABDOMINAL PAIN Time Seen by Provider: 11/14/18 19:52 Source: Patient Mode of Arrival: Ambulatory Limitations: No limitations - History of Present Illness Initial Comments: 63 yo male presents to ED for evaluation of diffuse abdominal pain, nausea, and vomiting that began approximately 10 days ago. Patient reports a history of similar symptoms possible due to retained duct stone following Cholecystectomy. Patient denies fevers, chills, or recent illness. Patient also reports MRCP 2 days ago, reports symptoms continue to worsen. Patient [place] [place]. Patient also reports resuming Morphine 10 days ago when his pain symptoms began, had stopped morphine 2 months prior that he was taking for arthritis and fibromyalgia. MD Complaint: Abdominal pain Onset/Timin -: Days(s) Location: Diffuse Radiation: None Migration to: No migration Severity: Severe Quality: Aching Consistency: Constant Improves With: Nothing Worsens With: Nothing Associated Symptoms: Nausea, Vomiting - Related Data Allergies Allergy/AdvReac Type Severity Reaction Status Date / Time erythromycin base Allergy VOMITING Verified 08/27/18 11:31 [Erythromycin Base] Review of Systems Constitutional: Denies: Chills, Fever, Malaise, Night sweats Eyes: Denies: Eye discharge, Eye pain ENT: Denies: Congestion, Ear pain, Epistaxis Respiratory: Denies: Cough, Dyspnea Cardiovascular: Denies: Chest pain, Dyspnea on exertion Endocrine: Denies: Fatigue, Heat or cold intolerance Gastrointestinal: Reports: Abdominal pain, Nausea, Vomiting. Denies: Constipation, Diarrhea Genitourinary: Denies: Incontinence, Retention Musculoskeletal: Denies: Arthralgia, Back pain, Gout, Joint swelling Skin: Denies: Bruising, Change in color Neurological: Denies: Abnormal gait, Confusion, Headache, Seizure Psychiatric: Denies: Anxiety Hematological/Lymphatic: Denies: Anemia, Blood Clots Past Medical History - SOCIAL HISTORY Smoking Status: Current every day smoker - RESPIRATORY Hx Respiratory Disorders: No Hx Sleep Apnea: Yes (only if sleeps on back) Comment:: post nasal drip r/t allergies - CARDIOVASCULAR Hx Cardio Disorders: No Hx Irregular Heartbeat: Yes (10 yrs ago ht monitor was neg) - NEURO Hx Neuro Disorders: No - GI Hx GI Disorders: Yes Hx Reflux: Yes Hx Liver Disease: Yes (hepatitis 25 years ago) Hx Nausea/Vomiting: Yes Comment:: dysphagia IBS - Hx Genitourinary Disorders: Yes Hx Prostate Problems: Yes (enlarged) - ENDOCRINE Hx Endocrine Disorders: No - MUSCULOSKELETAL Hx Musculoskeletal Disorders: Yes Hx Arthritis: Yes Hx Fibromyalgia: Yes - PSYCH Hx Psych Problems: No Hx Anxiety: Yes Hx Depression: Yes (hx clinical depression late 1989) - HEMATOLOGY/ONCOLOGY Hx Hematology/Oncology Disorders: No Physical Exam - General General Appearance: Alert, Oriented x3, Cooperative, Moderate distress Limitations: No limitations - Head Head exam: Atraumatic, Normocephalic, Normal inspection Head exam detail: negative: Abrasion, Contusion, Seals's sign, General tenderness, Hematoma, Laceration - Eye Eye exam: Normal appearance. negative: Conjunctival injection, Periorbital swelling, Periorbital tenderness, Scleral icterus - ENT Ear exam: negative: Auricular hematoma, Auricular trauma Nasal Exam: negative: Active bleeding, Discharge, Dried blood, Foreign body Mouth exam: negative: Drooling, Laceration, Muffled voice, Tongue elevation - Neck Neck exam: Normal inspection. negative: Meningismus, Tenderness - Respiratory Respiratory exam: Normal lung sounds bilaterally. negative: Rales, Respiratory distress, Rhonchi, Stridor - Cardiovascular Cardiovascular Exam: Regular rate, Normal rhythm, Normal heart sounds - GI/Abdominal GI/Abdominal exam: Soft, Tenderness (TTP diffusely with gurading present, no peritoneal signs present on examination). negative: Rebound, Rigid - Rectal Rectal exam: Deferred - exam: Deferred - Extremities Extremities exam: Normal inspection. negative: Pedal edema, Tenderness - Back Back exam: Denies: CVA tenderness (R), CVA tenderness (L) - Neurological Neurological exam: Alert, Normal gait, Oriented X3 - Psychiatric Psychiatric exam: Normal affect, Normal mood - Skin Skin exam: Normal color. negative: Abrasion Type of lesion: negative: abrasion Course - Reevaluation(s) Reevaluation #1: 11/14/18 19:59 MRCP Abdomen: Motion degraded limiting MRCP images Possible focus of choledocholithaisis within the common hepatic duct measuring 6 mm. ERCP could be obtained for further evaluation. Reevaluation #2: 11/14/18 20:28 EGD: 09/14/18 EGD: Miracle esophagus, stomach, and duodenum Dilated CBD with filling defect stone vs. air post ERCP Reevaluation #3: 11/14/18 20:48 laboratory studies were reviewed and are grossly unremarkable for an acute process except for the following: Bili 0.5 ALT 54 AST 63 Alk phos 195 Patient was reassessed and reports that his pain symptoms are greatly improved (09/14 currently). Will discuss follow-up with on-call provider for [facility]. Reevaluation #4: 11/14/18 21:05 Case was discussed with Dr. Randolph (On-call for Dr. Storey), is in agreement with the patient being stable for discharge with close follow-up in 1-2 days with [facility] provider in the office. Patient and his are in agreement with the plan of care as discussed, appears stable for discharge at this time. Medical Decision Making - Lab Data Result diagrams: 11/14/18 19:55 11/14/18 19:55 Disposition Disposition: Discharge Clinical Impression: Abdominal pain Qualifiers: Abdominal location: generalized Qualified Code(s): R10.84 - Generalized abdominal pain Disposition: Home, Self-Care Condition: (2) Stable Instructions: Abdominal Pain (ED) Additional Instructions: Return to ED if your symptoms worsen or if you have any concerns. Morphine as previously prescribed. Follow-up with [facility] withing 24-48 hours as directed. Forms: Patient Portal Access Time of Disposition: 21:07 Quality - Quality Measures Quality Measures: N/A - Blood Pressure Screening Does Patient Have Any of the Following: No Blood Pressure Classification: Normal BP Reading Systolic Measurement: 106 Diastolic Measurement: 68 Screening for High Blood Pressure: < Normal BP, F/U Not Required > [G8783]
[2018-11-14] MEDS ORDERED: 0.9 % SODIUM CHLORIDE 1000ML 1,000 ML IV SCH (20:00)
[2018-11-14 20:32] LABS: ABSOLUTE NEUTROPHIL COUNT 4.53; BASO % 0.4 % (0-6); EOS % 2.6 % (0-6); GRAN % 64.8 % (47-80); HEMATOCRIT 39.2 % (42.0-52.0); HEMOGLOBIN 12.9 gm/dl (14.0-18.0); LYMPH % 24.2 % (16-45); MEAN CELL VOLUME 87.9 fl (81-97); MEAN CORPUSCULAR HEMOGLOBIN 28.9 pg (27-33); MEAN CORPUSCULAR HGB CONC 32.9 g/dl (32-36); MEAN PLATELET VOLUME 9.7 fl (7.4-10.4); PLATELET COUNT 232 K/uL (130-400); RED BLOOD COUNT 4.46 M/uL (4.40-5.70); RED CELL DISTRIBUTION WIDTH 13.5 % (11.5-14.5)
[2018-11-14 20:33] LABS: URINE APPEARANCE CLEAR; URINE BILIRUBIN NEGATIVE (NEGATIVE); URINE BLOOD NEGATIVE (NEGATIVE); URINE COLOR YELLOW; URINE GLUCOSE (UA) NEGATIVE (NEGATIVE); URINE KETONE NEGATIVE (NEGATIVE); URINE LEUKOCYTE ESTERASE NEGATIVE (NEGATIVE); URINE NITRITE NEGATIVE (NEGATIVE); URINE PROTEIN NEGATIVE (NEGATIVE)
[2018-11-14 20:42] LABS: BLOOD UREA NITROGEN 6 mg/dL (8-23); CREATININE 0.8 mg/dL (0.7-1.2); EST GLOMERULAR FILTRATION RATE > 60 mL/min; LIPASE 36 U/L (13-60); TOTAL PROTEIN 6.4 g/dL (6.6-8.7)
[2018-11-14 20:44] LABS: GLUCOSE,RANDOM 117 mg/dL (74-109)
[2018-11-14 20:47] LABS: ALB/GLOB RATIO 1.8 (1.1-1.8); ALBUMIN 4.1 g/dL (4.0-5.0); ALKALINE PHOSPHATASE 195 U/L (40-129); ALT/SGPT 63 U/L (<41); AST/SGOT 54 U/L (10.0-50.0)
== END 2018-11-14 21:16 | disposition home or self-care (01) ==
LOC: ER 19:41
DX: R10.0 Acute abdomen (principal); F17.210 Nicotine dependence, cigarettes, uncomplicated; K82.8 Other specified diseases of gallbladder
CPT/HCPCS: 99284 ×2; 96374; 96375; 83690; 85025; 80053; 81003; J2405; J1170; 99285; J7030